=== PATIENT | male | born 1980 | race Hispanic/Latino ===

== ENCOUNTER 2022-12-27 00:19 | Emergency (ER) | payer SELFPAY ==
[2022-12-27] VITALS (8 sets, daily range): BP systolic 109–138; BP diastolic 63–84; PULSE 63–80; RESP 15–20; TEMP 36.5–36.8; O2SAT 97–100
--- NOTE | ~2022-12-27 | XR_ITS ---
EXAMINATION: XR shoulder LT min 2V INDICATION: Left shoulder pain, possible dislocation TECHNIQUE: Two views of the left shoulder are submitted. COMPARISON: None FINDINGS: There is anterior and inferior dislocation of the humeral head with respect to the glenoid. The acromioclavicular joint is unremarkable. Soft tissues are unremarkable. IMPRESSION: 1. Anterior and inferior dislocation of the humeral head with respect to the glenoid. Reviewed, dictated and finalized at location A. IMPRESSION: 1. Anterior and inferior dislocation of the humeral head with respect to the gl enoid.
--- NOTE | ~2022-12-27 | XR_ITS ---
EXAMINATION: XR shoulder LT min 2V INDICATION: Left shoulder reduction TECHNIQUE: Three views of the left shoulder are submitted. COMPARISON: 0116 hours FINDINGS: The glenohumeral dislocation has been reduced. There is mild deformity of the superolateral aspect of the humeral head. Glenohumeral and acromioclavicular joint spaces are normal. Soft tissues are unremarkable. IMPRESSION: 1. Reduced glenohumeral dislocation. 2. Possible Hill-Sachs fracture of the humeral head. Reviewed, dictated and finalized at location A.
[2022-12-27] MEDS: HYDROcodone/acetaminophen (*CRX) 5-325 MG TABLET 1 TAB PO (01:26)
--- NOTE | 2022-12-27 01:47 | ED.GENADULT ---
HPI - General Adult General Chief complaint: Extremity Injury, Upper <Flo Amato MD - Last Filed: 12/27/22 02:56> Stated complaint: shoulder dislocation? <Flo Amato MD - Last Filed: 12/27/22 02:56> Time Seen by Provider: 12/27/22 00:53 <Flo Amato MD - Last Filed: 12/27/22 02:56> History of Present Illness HPI narrative: 42-year-old male reports for evaluation for left shoulder pain and concern for dislocation x1 hour. Patient states he was sitting on the couch with his left arm over his head, stood up and felt a pop and has since not been able to lower his arm. He states this is happened once before in the same arm and he had to get it reduced. He reports tingling down his entire left arm but denies difficulty with hand function. <Carol Recinos PA-C - Last Filed: 12/27/22 02:51> Related Data Allergies/adverse reactions: Allergies Allergy/AdvReac Type Severity Reaction Status Date / Time No Known Allergies Allergy Verified 12/27/22 01:27 <Flo Amato MD - Last Filed: 12/27/22 02:56> Review of Systems Review of Systems: CONSTITUTIONAL: Denies fever, chills EYES: Denies visual changes, redness, or discharge. ENT: Denies rhinorrhea, congestion, sore throat, or otalgia. CARDIOVASCULAR: Denies chest pain, palpitations, or edema. RESPIRATORY: Denies cough or dyspnea. GASTROINTESTINAL: Denies abdominal pain, nausea, vomiting, or diarrhea. GENITOURINARY: Denies dysuria or hematuria. SKIN: Denies rash or itching. MUSCULOSKELETAL: See HPI NEUROLOGIC: Denies headache, numbness, dizziness, or weakness. PSYCHIATRIC: Denies anxiety or depression. <Carol Recinos PA-C - Last Filed: 12/27/22 02:51> Exam Narrative: GENERAL: Well-appearing, in no acute distress. HEAD: Normocephalic NECK: Supple. CHEST: No respiratory distress. Clear to auscultation, no adventitious breath sounds. HEART: Regular rate and rhythm. No murmur heard. Normal peripheral pulses. EXTREMITIES: Left shoulder and full Abduction with generalized tenderness, especially over the posterior shoulder. No obvious deformity. Sensation intact throughout. Patient able to give a thumbs up, oppose thumb and fifth digit, extend all fingers. Axillary, radial, ulnar and medial nerves all intact. DP pulse 2+. Cap refill less than 2. SKIN: Warm, dry, no rash. NEURO: No focal deficits. Alert and oriented x3. PSYCH: Normal mood and affect. <Carol Recinos PA-C - Last Filed: 12/27/22 02:51> Course Vital Signs Vital signs: Vital Signs Temperature 97.7 F 12/27/22 00:30 Pulse Rate 70 12/27/22 00:30 Respiratory Rate 16 12/27/22 00:30 Blood Pressure 135/74 12/27/22 00:30 Pulse Oximetry 100 12/27/22 00:30 Oxygen Delivery Room Air 12/27/22 00:30 Temperature 98.3 F 12/27/22 02:53 Pulse Rate 63 12/27/22 02:53 Respiratory Rate 15 12/27/22 02:53 Blood Pressure 118/63 12/27/22 02:53 Pulse Oximetry 100 12/27/22 02:53 Oxygen Delivery Room Air 12/27/22 02:53 <Flo Amato MD - Last Filed: 12/27/22 02:56> Vital Signs Temperature 97.7 F 12/27/22 00:30 Pulse Rate 70 12/27/22 00:30 Respiratory Rate 16 12/27/22 00:30 Blood Pressure 135/74 12/27/22 00:30 Pulse Oximetry 100 12/27/22 00:30 Oxygen Delivery Room Air 12/27/22 00:30 Temperature 98.3 F 12/27/22 02:53 Pulse Rate 63 12/27/22 02:53 Respiratory Rate 15 12/27/22 02:53 Blood Pressure 118/63 12/27/22 02:53 Pulse Oximetry 100 12/27/22 02:53 Oxygen Delivery Room Air 12/27/22 02:53 <Carol Recinos PA-C - Last Filed: 12/27/22 02:51> Procedures Orthopedic Joint Reduction Joint #1: Orthopedic Joint Reduction Date: 12/27/22 <Flo Amato MD - Last Filed: 12/27/22 02:56> Time Out Performed: Yes <Flo Amato MD - Last Filed: 12/27/22 02:56> Side: left <Flo Amato MD - Last Filed: 12/27/22 02:56>
[2022-12-27] MEDS: SODIUM CHLORIDE 0.9% IV 1,000 ML 999 ML IV CONT (01:49)
--- NOTE | 2022-12-27 03:07 | PC.NURSE ---
0214 100 mg of propofol given via IV push by Dr. Amato. Pt's vital sings are stable. 0218 50 mg of propofol given via IV push by Dr. Amato. Pt's vital signs are stable.
== END 2022-12-27 07:27 | disposition home or self-care (01) ==
PROVIDERS: Emergency Provider Emergency Medicine
DX: M24.412 Recurrent dislocation, left shoulder (principal)
CPT/HCPCS: 23650; 73030; 96374; 99285; A4565; A9270; J7030